=== PATIENT | female | born 1950 | race Caucasian/White ===

== ENCOUNTER 2018-08-15 19:27 | Inpatient (IN) | payer MEDICARE ==
[~2018-08-15] VITALS: Ht 152.4 cm; Wt 80.4 kg
[~2018-08-15 19:27] MED LIST: PENVK500 PO
[2018-08-15 20:14] LABS: BASOPHILS PERCENT AUTO 0 % (0-2); EOSINOPHILS ABSOLUTE AUTO 0.15 K/mm3 (0.00-0.68); EOSINOPHILS PERCENT AUTO 2 % (0-6); IMMATURE GRAN ABSOLUTE AUTO 0.05 K/mm3 (0.00-0.10); IMMATURE GRAN PERCENT AUTO 1 % (0-1); LYMPHOCYTES ABSOLUTE AUTO 1.52 K/mm3 (0.84-5.20); LYMPHOCYTES PERCENT AUTO 17 % (21-46); MONOCYTES PERCENT AUTO 6 % (4-13); Mean Corpuscular HGB 30.8 pg (26.0-34.0); Mean Corpuscular HGB Conc 29.7 g/dL (31.5-36.5); Mean Corpuscular Volume 104 fL (80-100); Mean Platelet Volume 9.3 fL (9.1-12.4); NEUTROPHILS PERCENT AUTO 75 % (41-73); Platelet Count 398 K/mm3 (150-400); RDW Coefficient Variation 14.2 % (11.7-14.2); RDW Standard Deviation 52.2 fL (35.1-46.3); Red Blood Cell Count 1.43 M/mm3 (3.80-5.20); White Blood Cell Count 8.72 K/mm3 (4.00-11.30)
[2018-08-15 20:20] LABS: Hemoglobin 4.4 g/dL (11.5-16.0)
[2018-08-15 20:21] LABS: Hematocrit 14.8 % (33.0-51.0)
[2018-08-15 20:38] LABS: Alanine Aminotransfer (ALT/SGP 22 U/L (12-78); Albumin, Blood 2.7 g/dL (3.4-5.0); Alk Phos 85 U/L (50-136); Anion Gap 5 mmol/L (6-16); Aspartate Aminotrans (AST/SGOT 25 U/L (12-37); Bilirubin, Total 0.1 mg/dL (0.1-1.0); Blood Urea Nitrogen 30 mg/dL (8-24); Bun/Creatinine Ratio 52.7 (12.0-20.0); CO2, Blood 24 mmol/L (21-32); Calcium, Blood 8.2 mg/dL (8.5-10.1); Chloride, Blood 109 mmol/L (98-108); Creatinine, Blood 0.57 mg/dL (0.40-1.00); Globulin, Blood 2.6 g/dL (2.2-4.0); Glomerular Filtration Rate >60 (60-); Glucose, Blood 106 mg/dL (70-99); Potassium, Blood 3.7 mmol/L (3.5-5.5); Sodium, Blood 138 mmol/L (136-145); Total Protein, Blood 5.3 g/dL (6.4-8.2); Troponin I <0.015 ng/mL (0.000-0.040)
[2018-08-15 22:58] LABS: IMMATURE RETIC FRACTION 44.5 % (2.3-16.0); RETIC HGB EQUIVALENT 24.8 pg (28.20-36.60); RETICULOCYTE ABSOLUTE 0.1038 M/mm3 (0.0200-0.1100); RETICULOCYTE COUNT PERCENT 7.31 % (0.50-2.50)
[2018-08-15 23:07] LABS: Percent Saturation 11.4 % (15.0-50.0)
[2018-08-15 23:45] LABS: Thyroid Stimulating Hormone 1.37 uIU/mL (0.360-4.800)
[2018-08-16 07:42] LABS: BASOPHILS ABSOLUTE AUTO 0.02 K/mm3 (0.00-0.23); BASOPHILS PERCENT AUTO 0 % (0-2); EOSINOPHILS ABSOLUTE AUTO 0.17 K/mm3 (0.00-0.68); EOSINOPHILS PERCENT AUTO 2 % (0-6); Hematocrit 28.8 % (33.0-51.0); IMMATURE GRAN PERCENT AUTO 1 % (0-1); LYMPHOCYTES PERCENT AUTO 21 % (21-46); MONOCYTES PERCENT AUTO 8 % (4-13); Mean Corpuscular HGB 28.6 pg (26.0-34.0); Mean Corpuscular HGB Conc 31.3 g/dL (31.5-36.5); Mean Platelet Volume 9.3 fL (9.1-12.4); NEUTROPHILS ABSOLUTE AUTO 4.91 K/mm3 (1.96-9.15); NEUTROPHILS PERCENT AUTO 67 % (41-73); NRBC ABSOLUTE 0.03 K/mm3 (0.00-0.02); NRBC Auto 0.4 /100 WBC (0.0-0.2); Platelet Count 337 K/mm3 (150-400); RDW Coefficient Variation 16.6 % (11.7-14.2); RDW Standard Deviation 53.9 fL (35.1-46.3); Red Blood Cell Count 3.15 M/mm3 (3.80-5.20)
[2018-08-16 07:43] LABS: Mean Corpuscular Volume 91 fL (80-100)
--- NOTE | 2018-08-16 07:43 | NUR ---
SUMMARY PT HAD A TOTAL OF 3 UNITS PRBC'S INFUSED. PT IS TOERATING WITH NO S/S OF TRANSFUSION REACTION AT THIS TIME. VSS, AFEBRILE. LUNGS CLEAR, SLIGHLTY DIM IN BASES, PT DENIES SOB/CP. PT IS ON ROOM AIR. IV IS SL. PT'S IS AT THE BEDSIDE THIS AM.
[2018-08-16 08:26] LABS: Anion Gap 6 mmol/L (6-16); Blood Urea Nitrogen 21 mg/dL (8-24); Bun/Creatinine Ratio 35.5 (12.0-20.0); CO2, Blood 23 mmol/L (21-32); Calcium, Blood 8.1 mg/dL (8.5-10.1); Chloride, Blood 112 mmol/L (98-108); Creatinine, Blood 0.59 mg/dL (0.40-1.00); Glomerular Filtration Rate >60 (60-); Glucose, Blood 91 mg/dL (70-99); Potassium, Blood 3.6 mmol/L (3.5-5.5); Sodium, Blood 141 mmol/L (136-145)
--- NOTE | 2018-08-16 14:58 | NUR ---
REPORT CALLED TO NEVIN LANDA [facility]. PT NOTIFIED THAT A BED IS AVALIABLE AND TRANSPORT WILL BE ARRANGED.
--- NOTE | 2018-08-16 15:07 | NUR ---
Met with Mrs. Burgess and her at bedside. Both are tearful. "I have a mass." Yajaira admits to being fearful. She is being sent to [place] soon. Prayer was well receieved, as well as gentle financial services counselor. I will remain available.
--- NOTE | 2018-08-16 15:27 | NUR ---
PT LEFT WITH [facility]SPORT AT 1526. PT ALERT AND ORIENTED AT TIME OF DISCHARGE. REPORT PROVIDED FOR TRANSPORT CREW.
== END 2018-08-16 15:27 | disposition short-term general hospital (02) | DRG 812 ==
LOC: ER 19:27 → PCU 23:16 → ER 08-16 01:07 → PCU 08-16 01:25
PROVIDERS: Physician Assistant; ADMIT Internal Medicine
PROC: 30233N1 Transfusion of Nonautologous Red Blood Cells into Peripheral Vein, Percutaneous Approach (ICD-10-PCS; principal; 2018-08-15)
DX: D50.0 Iron deficiency anemia secondary to blood loss (chronic) (principal); E11.9 Type 2 diabetes mellitus without complications; K31.9 Disease of stomach and duodenum, unspecified; I10 Essential (primary) hypertension; E78.5 Hyperlipidemia, unspecified; Z88.8 Allergy status to other drugs, medicaments and biological substances
CPT/HCPCS: 36415; 36430; 71046; 74177; 80048; 80053; 82607; 82728; 82746; 82947; 83036; 83540; 83550; 83880; 84443; 84484; 85025; 85045; 86850; 86900; 86901; 86923; 93005; 93010; 99285-25; J7030; P9016; Q9967